=== PATIENT | female | born 1980 | race African-American/Black ===

== ENCOUNTER 2025-01-11 12:10 | Outpatient (REF) | payer SELFPAY ==
[2025-01-12 05:34] LABS: Rubeola IgG (Measles) >300.00 AU/mL
[2025-01-13 20:08] LABS: TS Negative Control Passed; TS Panel A 0; TS Panel B 2; TS Positive Control Passed; TSpotTB Negative (Negative)
== END 2025-01-11 12:11 | disposition home or self-care (01) ==
LOC: HO.HHCL 12:10
PROVIDERS: Visit Provider Internal Medicine Infectious Disease
DX: Z01.84 Encounter for antibody response examination (principal); Z11.1 Encounter for screening for respiratory tuberculosis
CPT/HCPCS: 36415; 86481; 86735; 86762; 86765; 86787